=== PATIENT | female | born 1960 | race Caucasian/White ===

== ENCOUNTER 2017-06-08 13:08 | Emergency (ER) | payer OTHER ==
[2017-06-08] MEDS ORDERED: Ketorolac 60 MG/2 ML SDV IM ONE (13:55)
--- NOTE | 2017-06-08 13:58 | EDM.PDOC ---
ED HPI GENERAL MEDICAL PROBLEM - General Chief Complaint: General Stated Complaint: FLU-LIKE SYMPTOMS Time Seen by Provider: 06/08/17 13:39 - History of Present Illness INITIAL COMMENTS - FREE TEXT/NARRATIVE: HISTORY AND PHYSICAL: History of present illness: The patient is a 56-year-old female who presents with not feeling well since yesterday afternoon. The patient says that she woke yesterday morning at 3 AM with a typical migraine headache. She says her headaches are usually in the back of her head and neck there is associated with nausea and vomiting which she had. The patient said she just slept it off and the headache went away and she no longer has that. She is no longer nauseated nor did she have any abdominal complaints. Patient says that along with the headache she just started feeling run down with body aches and and after her headache was gone she started having a harsh deep cough occasionally productive of phlegm any sore throat. Her temps have been low-grade and she has no chest pain or shortness of breath. Patient says that she has aches all over her body and has low energy. She has had no appetite but is hydrating. 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 Past medical history: As per history of present illness and as reviewed below otherwise noncontributory. Surgical history: As per history of present illness and as reviewed below otherwise noncontributory. Social history: No reported history of drug or alcohol abuse. Family history: As per history of present illness and as reviewed below otherwise noncontributory. Physical exam: General: Well-developed well-nourished female who is nontoxic and speaks without hoarse voice or breathlessness. She does have a harsh cough which I appreciated in the ER. Vital signs have been reviewed by me HEENT: Atraumatic, normocephalic, pupils reactive, negative for conjunctival pallor or scleral icterus, mucous membranes moist, throat clear, neck supple, nontender, trachea midline. No cervical adenopathy or nuchal rigidity Lungs: Clear to auscultation, breath sounds equal bilaterally, chest nontender. Heart: S1S2, regular, negative for clicks, rubs, or JVD. Abdomen: Soft, nondistended, nontender. NABS Pelvis: Deferred Genitourinary: Deferred. Rectal: Deferred. Extremities: Atraumatic, negative for cords or calf pain. Neurovascular unremarkable. Neuro: Awake, alert, oriented. Cranial nerves II through XII unremarkable. Cerebellum unremarkable. Motor and sensory unremarkable throughout. Exam nonfocal. Diagnostics: CBC CMP mono spot UA rapid strep influenza x-ray Therapeutics: Toradol Impression: Influenza A Definitive disposition and diagnosis as appropriate pending reevaluation and review of above. Generalized Pain Score (Numeric/FACES): 3 - Related Data Allergies Allergy/AdvReac Type Severity Reaction Status Date / Time cortisone [Cortisone] Allergy Rash Verified 04/06/14 07:14 MST egg Allergy Anaphylactic Verified 04/06/14 07:14 MST Shock Penicillins Allergy Decreased Verified 04/06/14 07:14 MST Urine Output Home Meds: Home Meds Bifidobacterium Infantis [Align] 4 mg PO DAILY 04/05/14 [History] Levocetirizine Dihydrochloride 5 mg PO BEDTIME 04/05/14 [History] Olopatadine [Patanol 0.1% Ophth Soln] 1 drop EYEBOTH BID 04/05/14 [History] Montelukast Sodium [Singulair] 10 mg PO DAILY PRN 04/06/14 [History] Past Medical History - Past Health History Medical/Surgical History: Denies Medical/Surgical History Social & Family History - Tobacco Use Smoking Status *Q: Never Smoker Second Hand Smoke Exposure: No - Caffeine Use Caffeine Use: Reports: None - Alcohol Use Days Per Week of Alcohol Use: 0 Number of Drinks Per Day: 0 Total Drinks Per Week: 0 - Recreational Drug Use Recreational Drug Use: No Drug Use in Last 12 Months: No ED ROS GENERAL - Review of Systems Review Of Systems: ROS reveals no pertinent complaints other than HPI. ED EXAM, GENERAL - Physical Exam Exam: See Below (See dictation) Course - Vital Signs Last Recorded V/S: Last Vital Signs Temp 36.7 C 06/08/17 13:37 Pulse 77 06/08/17 13:37 Resp 18 06/08/17 13:37 BP 140/84 06/08/17 13:37 Pulse Ox 95 06/08/17 13:37 - Orders/Labs/Meds Orders: Active Orders 24 hr Category Date Time Status Chest 2V [CR] Stat Exams 06/08/17 13:55 Taken CULTURE STREP A CONFIRMATION [RM] Stat Lab 06/08/17 14:00 Results STREP SCRN A RAPID W CULT CONF [RM] Stat Lab 06/08/17 14:00 Results Labs: Laboratory Tests 06/08/17 06/08/17 06/08/17 Range/Units 14:01 14:01 14:01 WBC 4.59 (4.0-11.0) K/uL RBC 4.56 (4.30-5.90) M/uL Hgb 13.0 (12.0-16.0) g/dL Hct 40.2 (36.0-46.0) % MCV 88.2 (80.0-98.0) fL MCH 28.5 (27.0-32.0) pg MCHC 32.3 (31.0-37.0) g/dL RDW Std Deviation 42.8 (28.0-62.0) fl RDW Coeff of Ramirez 13 (11.0-15.0) % Plt Count 149 L (150-400) K/uL MPV 10.00 (7.40-12.00) fL Neut % (Auto) 82.3 H (48.0-80.0) % Lymph % (Auto) 6.8 L (16.0-40.0) % Sac % (Auto) 10.9 (0.0-15.0) % Eos % (Auto) 0.0 (0.0-7.0) % Baso % (Auto) 0.0 (0.0-1.5) % Neut # (Auto) 3.8 (1.4-5.7) K/uL Lymph # (Auto) 0.3 L (0.6-2.4) K/uL Sac # (Auto) 0.5 (0.0-0.8) K/uL Eos # (Auto) 0.0 (0.0-0.7) K/uL Baso # (Auto) 0.0 (0.0-0.1) K/uL Nucleated RBC % 0.0 /100WBC Nucleated RBCs # 0 K/uL Sodium 134 L (136-146) mmol/L Potassium 3.4 L (3.5-5.1) mmol/L Chloride 101 (98-110) mmol/L Carbon Dioxide 24 (21-31) mmol/L BUN 12 (6.0-23.0) mg/dL Creatinine 0.8 (0.6-1.5) mg/dL Est Cr Clr Drug Dosing TNP Estimated GFR (MDRD) > 60.0 ml/min Glucose 118 H (60-110) mg/dL Calcium 8.9 (8.8-10.8) mg/dL Total Bilirubin 0.7 (0.1-1.5) mg/dL AST 19 (5-40) IU/L ALT 16 (8-54) IU/L Alkaline Phosphatase 74 (40-150) Total Protein 7.0 (6.0-8.0) g/dL Albumin 4.3 (3.5-5.0) g/dL Globulin 2.7 (2.0-3.5) g/dL Albumin/Globulin Ratio 1.6 (1.3-2.8) Monoscreen NEGATIVE (NEG) Meds: Medications Discontinued Medications Generic Name Dose Route Start Last Admin Trade Name Freq PRN Reason Stop Dose Admin Ketorolac Tromethamine 60 mg 06/08/17 13:55 06/08/17 14:23 Toradol IM 06/08/17 13:56 60 mg ONETIME ONE Administration Departure - Departure Time of Disposition: 14:50 Disposition: Home, Self-Care 01 Condition: Good Clinical Impression: Influenza A - Discharge Information Referrals: Lisa Ray DO [Primary Care Provider] - Forms: ED Department Discharge Additional Instructions: The following information is given to patients seen in the emergency department who are being discharged to home. This information is to outline your options for follow-up care. We provide all patients seen in our emergency department with a follow-up referral. The need for follow-up, as well as the timing and circumstances, are variable depending upon the specifics of your emergency department visit. If you don't have a primary care physician on staff, we will provide you with a referral. We always advise you to contact your personal physician following an emergency department visit to inform them of the circumstance of the visit and for follow-up with them and/or the need for any referrals to a consulting specialist. The emergency department will also refer you to a specialist when appropriate. This referral assures that you have the opportunity for followup care with a specialist. All of these measure are taken in an effort to provide you with optimal care, which includes your followup. Under all circumstances we always encourage you to contact your private physician who remains a resource for coordinating your care. When calling for followup care, please make the office aware that this follow-up is from your recent emergency room visit. If for any reason you are refused follow-up, please contact the [facility] emergency department at and ask to speak to the emergency department charge nurse. [address] [place] [address] [facility]- Internal Medicine and Family [address] [address] Push hydration rest and use [id number] Tylenol and ibuprofen for pain body aches and fevers. Please fill your prescription for Tamiflu and take as directed as this may shorten the duration of your symptoms. Please call and follow-up with your provider in the clinic or one of our providers next week for reevaluation further care. Return to the ER as needed and as discussed - My Orders Last 24 Hours: My Active Orders 06/08/17 13:55 Chest 2V [CR] Stat 06/08/17 14:00 CULTURE STREP A CONFIRMATION [RM] Stat STREP SCRN A RAPID W CULT CONF [] Stat - Assessment/Plan Last 24 Hours: My Active Orders 06/08/17 13:55 Chest 2V [CR] Stat 06/08/17 14:00 CULTURE STREP A CONFIRMATION [RM] Stat STREP SCRN A RAPID W CULT CONF [] Stat
[2017-06-08 14:32] LABS: CHLORIDE,CL 101 mmol/L (98-110); SODIUM,NA 134 mmol/L (136-146)
--- NOTE | 2017-06-10 14:21 | CR ---
EXAM DATE: 06/08/17 PATIENT'S AGE: 56 Patient: JOELLE PACKER Facility: [place], [place] Site . Site : [id number] Study: XRay Chest [id number] 2:19:18 PM Ordering Physician: Pro Bowen Final Report: INDICATION: Pain. Shortness of breath. TECHNIQUE: PA and lateral chest x-ray. FINDINGS: Mild anterior wedging of lower thoracic vertebral bodies chronic. Heart size normal. No pulmonary infiltrate. Slight linear atelectasis or scarring in the lower lungs. Chest otherwise negative. Dictated by Trell Wray MD @ Jun 08 2017 2:26PM (Electronic Signature) Report Signed by Proxy. EFREN
== END 2017-06-08 15:21 | disposition home or self-care (01) ==
LOC: MW.ED 13:08
DX: J10.1 Influenza due to other identified influenza virus with other respiratory manifestations (principal); Z88.0 Allergy status to penicillin; Z88.8 Allergy status to other drugs, medicaments and biological substances; Z91.012 Allergy to eggs; Z79.899 Other long term (current) drug therapy
CPT/HCPCS: 36415; 71046; 80053; 85025; 86308; 87081; 87804; 87880; 96372; 99284; J1885

== ENCOUNTER 2020-05-14 09:15 | Emergency (ER) | payer OTHER ==
--- NOTE | 2020-05-14 09:45 | EDM.PDOC ---
ED HPI GENERAL MEDICAL PROBLEM - General Chief Complaint: Gastrointestinal Problem Stated Complaint: bowel obstruction Time Seen by Provider: 05/14/20 09:31 Source of Information: Reports: Patient History Limitations: Reports: No Limitations - History of Present Illness INITIAL COMMENTS - FREE TEXT/NARRATIVE: A 59-year-old female presents today for lower abdominal pain. Patient states that last night she was eating patient and she woke up some bloody bowel movements. Patient states that she had to pass gas in the base of blood came out. Patient that she had before the past with her hemorrhoids. Patient denies any weakness fever chills change in color or other complaints abdomen Pain Score (Numeric/FACES): 4 - Related Data Allergies Allergy/AdvReac Type Severity Reaction Status Date / Time cortisone [Cortisone] Allergy Rash Verified 05/14/20 09:57 egg Allergy Anaphylactic Verified 05/14/20 09:57 Shock Penicillins Allergy Decreased Verified 05/14/20 09:57 Urine Output Home Meds: Home Meds Ciprofloxacin [Cipro] 750 mg PO DAILY 3 Days #3 tablet 05/14/20 [Rx] Past Medical History - Past Health History Medical/Surgical History: Denies Medical/Surgical History Social & Family History - Caffeine Use Caffeine Use: Reports: None ED ROS GENERAL - Review of Systems Review Of Systems: See Below Constitutional: Reports: No Symptoms HEENT: Reports: No Symptoms Respiratory: Reports: No Symptoms Cardiovascular: Reports: No Symptoms Endocrine: Reports: No Symptoms GI/Abdominal: Reports: Abdominal Pain, Hematochezia : Reports: No Symptoms Musculoskeletal: Reports: No Symptoms Skin: Reports: No Symptoms Neurological: Reports: No Symptoms Psychiatric: Reports: No Symptoms Hematologic/Lymphatic: Reports: No Symptoms Immunologic: Reports: No Symptoms ED EXAM, GENERAL - Physical Exam Exam: See Below Exam Limited By: No Limitations General Appearance: Alert, WD/WN Respiratory/Chest: No Respiratory Distress, Lungs Clear, Normal Breath Sounds Cardiovascular: Normal Peripheral Pulses, Regular Rate, Rhythm GI/Abdominal: Normal Bowel Sounds, Soft, Non-Tender Extremities: Normal Inspection, Normal Range of Motion Neurological: Alert, Oriented, CN II-XII Intact, Normal Cognition Course - Vital Signs Last Recorded V/S: Last Vital Signs Temp 98.6 F 05/14/20 09:26 Pulse 93 05/14/20 09:26 Resp 17 05/14/20 09:26 BP 164/97 H 05/14/20 09:26 Pulse Ox 96 05/14/20 09:26 - Orders/Labs/Meds Orders: Active Orders 24 hr Category Date Time Status Guaiac [OCCULT BLOOD DIAGNOSTIC] [OP] Stat Lab 05/14/20 09:42 Ordered Labs: Laboratory Tests 05/14/20 05/14/20 05/14/20 Range/Units 09:58 09:58 09:58 WBC 7.85 (4.0-11.0) K/uL RBC 5.13 (4.30-5.90) M/uL Hgb 14.5 (12.0-16.0) g/dL Hct 45.7 (36.0-46.0) % MCV 89.1 (80.0-98.0) fL MCH 28.3 (27.0-32.0) pg MCHC 31.7 (31.0-37.0) g/dL RDW Std Deviation 41.4 (28.0-62.0) fl RDW Coeff of Ramirez 13 (11.0-15.0) % Plt Count 212 (150-400) K/uL MPV 10.40 (7.40-12.00) fL Neut % (Auto) 86.6 H (48.0-80.0) % Lymph % (Auto) 7.9 L (16.0-40.0) % [place] % (Auto) 5.0 (0.0-15.0) % Eos % (Auto) 0.4 (0.0-7.0) % Baso % (Auto) 0.1 (0.0-1.5) % Neut # (Auto) 6.8 H (1.4-5.7) K/uL Lymph # (Auto) 0.6 (0.6-2.4) K/uL [place] # (Auto) 0.4 (0.0-0.8) K/uL Eos # (Auto) 0.0 (0.0-0.7) K/uL Baso # (Auto) 0.0 (0.0-0.1) K/uL Nucleated RBC % 0.0 /100WBC Nucleated RBCs # 0 K/uL INR 1.11 APTT 27.9 (18.6-31.3) SEC Sodium 142 (136-145) mmol/L Potassium 3.8 (3.5-5.1) mmol/L Chloride 103 (98-107) mmol/L Carbon Dioxide 27.1 (21.0-32.0) mmol/L BUN 13 (7.0-18.0) mg/dL Creatinine 0.9 (0.6-1.0) mg/dL Est Cr Clr Drug Dosing 63.78 mL/min Estimated GFR (MDRD) > 60.0 ml/min Glucose 119 H (74-106) mg/dL Calcium 9.4 (8.5-10.1) mg/dL Phosphorus 3.5 (2.6-4.7) mg/dL Magnesium 2.0 (1.8-2.4) mg/dL Total Bilirubin 0.6 (0.2-1.0) mg/dL AST 19 (15-37) IU/L ALT 34 (14-63) IU/L Alkaline Phosphatase 108 (46-116) U/L Creatine Kinase 48 (26-308) U/L Total Protein 7.7 (6.4-8.2) g/dL Albumin 4.3 (3.4-5.0) g/dL Globulin 3.4 (2.6-4.0) g/dL Albumin/Globulin Ratio 1.3 (0.9-1.6) Lipase 92 (73-393) U/L 05/14/20 Range/Units 13:34 WBC 9.77 (4.0-11.0) K/uL RBC 5.17 (4.30-5.90) M/uL Hgb 14.6 (12.0-16.0) g/dL Hct 46.4 H (36.0-46.0) % MCV 89.7 (80.0-98.0) fL MCH 28.2 (27.0-32.0) pg MCHC 31.5 (31.0-37.0) g/dL RDW Std Deviation 42.0 (28.0-62.0) fl RDW Coeff of Ramirez 13 (11.0-15.0) % Plt Count 211 (150-400) K/uL MPV 10.40 (7.40-12.00) fL Neut % (Auto) 82.6 H (48.0-80.0) % Lymph % (Auto) 10.5 L (16.0-40.0) % [place] % (Auto) 6.4 (0.0-15.0) % Eos % (Auto) 0.4 (0.0-7.0) % Baso % (Auto) 0.1 (0.0-1.5) % Neut # (Auto) 8.1 H (1.4-5.7) K/uL Lymph # (Auto) 1.0 (0.6-2.4) K/uL [place] # (Auto) 0.6 (0.0-0.8) K/uL Eos # (Auto) 0.0 (0.0-0.7) K/uL Baso # (Auto) 0.0 (0.0-0.1) K/uL Nucleated RBC % 0.0 /100WBC Nucleated RBCs # 0 K/uL INR APTT (18.6-31.3) SEC Sodium (136-145) mmol/L Potassium (3.5-5.1) mmol/L Chloride (98-107) mmol/L Carbon Dioxide (21.0-32.0) mmol/L BUN (7.0-18.0) mg/dL Creatinine (0.6-1.0) mg/dL Est Cr Clr Drug Dosing mL/min Estimated GFR (MDRD) ml/min Glucose (74-106) mg/dL Calcium (8.5-10.1) mg/dL Phosphorus (2.6-4.7) mg/dL Magnesium (1.8-2.4) mg/dL Total Bilirubin (0.2-1.0) mg/dL AST (15-37) IU/L ALT (14-63) IU/L Alkaline Phosphatase (46-116) U/L Creatine Kinase (26-308) U/L Total Protein (6.4-8.2) g/dL Albumin (3.4-5.0) g/dL Globulin (2.6-4.0) g/dL Albumin/Globulin Ratio (0.9-1.6) Lipase (73-393) U/L Meds: Medications Discontinued Medications Generic Name Dose Route Start Last Admin Trade Name Freq PRN Reason Stop Dose Admin Ciprofloxacin 500 mg 05/14/20 13:34 05/14/20 13:46 Ciprofloxacin Hcl PO 05/14/20 13:35 500 mg ONETIME ONE Administration Iopamidol 100 ml 05/14/20 12:31 05/14/20 12:32 Isovue Multipack-370 (76%) IVPUSH 05/14/20 12:32 100 ml ONETIME ONE Administration - Re-Assessments/Exams Free Text/Narrative Re-Assessment/Exam: 05/14/20 13:54 Patient hemoglobin remained stable. Patient has a colitis. There was no obvious blood seen on the guaiac. The guaiac was positive. We will send patient home with antibiotics and give strict return precautions no signs of profuse GI bleed at the moment. Departure - Departure Time of Disposition: 14:20 Disposition: Home, Self-Care 01 Clinical Impression: Colitis - Discharge Information *PRESCRIPTION DRUG MONITORING PROGRAM REVIEWED*: Not Applicable *COPY OF PRESCRIPTION DRUG MONITORING REPORT IN PATIENT [place]: Not Applicable Prescriptions: Ciprofloxacin [Cipro] 750 mg PO DAILY 3 Days #3 tablet Instructions: Gastrointestinal Bleeding, Bloody Diarrhea Referrals: Lisa Ray DO [Primary Care Provider] - Forms: ED Department Discharge Additional Instructions: The following information is given to patients seen in the emergency department who are being discharged to home. This information is to outline your options for follow-up care. We provide all patients seen in our emergency department with a follow-up referral. The need for follow-up, as well as the timing and circumstances, are variable depending upon the specifics of your emergency department visit. If you don't have a primary care physician on staff, we will provide you with a referral. We always advise you to contact your personal physician following an emergency department visit to inform them of the circumstance of the visit and for follow-up with them and/or the need for any referrals to a consulting specialist. The emergency department will also refer you to a specialist when appropriate. This referral assures that you have the opportunity for follow-up care with a specialist. All of these measure are taken in an effort to provide you with optimal care, which includes your follow-up. Under all circumstances we always encourage you to contact your private physician who remains a resource for coordinating your care. When calling for follow-up care, please make the office aware that this follow-up is from your recent emergency room visit. If for any reason you are refused follow-up, please contact the [facility] Emergency Department at and asked to speak to the emergency department charge nurse. Please follow up with your primary care physician. If you do not have a primary care physician, see below: [facility] [address] [place] [address] My [facility] [address] [place] [address] Follow with your primary care physician. Please also see a elderly companion for further care. You have any increased blood in your stool weakness fatigue or turning pale please return to the ED immediately. Sepsis Event Note (ED) - Focused Exam Vital Signs: Vital Signs Temp Pulse Resp BP Pulse Ox 05/14/20 09:26 98.6 F 93 17 164/97 H 96 - My Orders Last 24 Hours: My Active Orders 05/14/20 09:42 Guaiac [OCCULT BLOOD DIAGNOSTIC] [OP] Stat - Assessment/Plan Last 24 Hours: My Active Orders 05/14/20 09:42 Guaiac [OCCULT BLOOD DIAGNOSTIC] [OP] Stat Assessment:: Patient is a 59-year-old female presents today for lower abdominal pain. Patient also complains of some blood in her stool. Will perform stool guaiac obtain CBC and trend hemoglobin.
[2020-05-14 10:39] LABS: BLOOD UREA NITROGEN,BUN 13 mg/dL (7.0-18.0); CARBON DIOXIDE,CO2 27.1 mmol/L (21.0-32.0); CHLORIDE,CL 103 mmol/L (98-107); GLUCOSE RANDOM 119 mg/dL (74-106); LIPASE 92 U/L (73-393); POTASSIUM,K 3.8 mmol/L (3.5-5.1); SODIUM,NA 142 mmol/L (136-145)
[2020-05-14] MEDS: Iopamidol 755 MG/ML 500 ML Multipack Bottle IVPUSH ONE (12:32)
--- NOTE | 2020-05-14 13:33 | CT ---
INDICATION: Left lower quadrant pain with possible blood in stool. TECHNIQUE: Volumetric helical scanning of the abdomen and pelvis was performed with 100 cc of Isovue 370 contrast material IV. Coronal and sagittal reconstructions were obtained. COMPARISON: None. FINDINGS: Mild circumferential wall thickening of the colon from the mid transverse to the distal sigmoid with stranding in the adjacent fat and consistent with acute colitis. No pneumatosis, free fluid or free air is evident. The bowel is otherwise unremarkable except for a small hiatal hernia. The liver is unremarkable except for a 5 mm focus of decreased attenuation in the right lobe. No bile duct dilation is evident. The spleen is unremarkable except for and 8 mm focus of decreased attenuation. The adrenal glands are unremarkable. The pancreas is within normal limits. The kidneys are unremarkable. No lymphadenopathy is evident. The uterus and ovaries are within normal limits. The lung bases are clear. The heart is normal in size. IMPRESSION: 1. Uncomplicated acute colitis involving the sigmoid, left and distal transverse colon. 2. Nonspecific 8 mm focus of decreased attenuation in the spleen and 5 mm focus of decreased attenuation in the liver. Cyst or hemangioma likely. 3. Small hiatal hernia. Please note that all CT scans at this facility use dose modulation, iterative reconstruction, and/or weight-based dosing when appropriate to reduce radiation dose to as low as reasonably achievable. Dictated by Germán Jack MD @ May 14 2020 1:25PM Signed by Dr. Germán Jack @ May 14 2020 1:31PM
[2020-05-14] MEDS: Ciprofloxacin 500 MG Tab PO ONE (13:46)
== END 2020-05-14 14:29 | disposition home or self-care (01) ==
LOC: MW.ED 09:15
DX: K52.9 Noninfective gastroenteritis and colitis, unspecified (principal); Z88.0 Allergy status to penicillin; Z88.8 Allergy status to other drugs, medicaments and biological substances; Z91.012 Allergy to eggs
CPT/HCPCS: 36415; 74177; 80053; 82550; 83690; 83735; 84100; 85025; 85610; 85730; 99284; A9270; Q9967; 99283

== ENCOUNTER 2022-08-01 15:49 | Day surgery (SDC) | payer BC, OTHER ==
[2022-08-01] MEDS ORDERED: Sodium Chloride 0.9% 1,000 ML IV ONE (16:39)
[2022-08-01 18:05] LABS: CARBON DIOXIDE,CO2 28.2 mmol/L (21.0-32.0); POTASSIUM,K 3.6 mmol/L (3.5-5.1)
[2022-08-01] MEDS ORDERED: Iopamidol 755 MG/ML 500 ML Multipack Bottle IVPUSH STA (18:24)
[2022-08-01] MEDS ORDERED: Ertapenem 1 GM in Sodium Chloride 0.9% 50 ML IV ONE (20:25)
[2022-08-01] MEDS ORDERED: Ondansetron 4 MG/2 ML SDV ONE (20:58)
[2022-08-01] MEDS ORDERED: Dexmedetomidine 200 MCG/2 ML SDV ONE (20:58)
[2022-08-01] MEDS ORDERED: Ketorolac 30 MG/ML SDV ONE (20:58)
[2022-08-01] MEDS ORDERED: Water For Injection, Sterile 20 ML ONE (20:58)
[2022-08-01] MEDS ORDERED: Rocuronium Bromide 50 MG/5 ML Syringe ONE (20:58)
[2022-08-01] MEDS ORDERED: Lidocaine 1% 5 ML VIAL ONE (20:58)
[2022-08-01] MEDS ORDERED: ePHEDrine 50 MG/ML SDV ONE (20:58)
[2022-08-01] MEDS ORDERED: Phenylephrine HCl 0.5 MG/5 ML AMP ONE (20:58)
[2022-08-01] MEDS ORDERED: Dexamethasone 4 MG/ML 5 ML MDV ONE ×2 (20:58→22:13)
[2022-08-01] MEDS ORDERED: Bupivacaine 0.25% 30 ML SDV ONE (20:59)
[2022-08-01] MEDS ORDERED: fentaNYL 100 MCG/2 ML SDV ONE (21:05)
[2022-08-01] MEDS ORDERED: Propofol 200 MG/20 ML SDV ONE (21:05)
[2022-08-01] MEDS ORDERED: propofoL 100 ML ONE (21:34)
[2022-08-01] MEDS ORDERED: Magnesium Sulfate (4.06 MEQ/ML) 5 GM/10 ML SDV ONE (21:38)
[2022-08-01] MEDS ORDERED: Bupivacaine 0.5% 30 ML SDV ONE (21:49)
[2022-08-01] MEDS ORDERED: Sugammadex Sodium 200 MG/2 ML VIAL ONE (22:37)
[2022-08-01] MEDS ORDERED: HYDROmorphone 2 MG/ML Syringe IVPUSH PRN (22:46)
[2022-08-01] MEDS ORDERED: Acetaminophen/HYDROcodone 325-10 MG Tab PO PRN (22:46)
[2022-08-01] MEDS ORDERED: Lactated Ringers 1,000 ML IV SCH (23:00)
[2022-08-02] MEDS ORDERED: Ondansetron 4 MG/2 ML SDV IVPUSH PRN (03:00)
== END 2022-08-02 09:20 | disposition home or self-care (01) ==
LOC: MW.ED 15:49 → MW.SDS 20:32 → MW.MS 20:35 → MW.SDS 08-02 09:20
PROVIDERS: ATTEND Surgery
DX: K35.33 Acute appendicitis with perforation, localized peritonitis, and gangrene, with abscess (principal); N73.6 Female pelvic peritoneal adhesions (postinfective); K21.9 Gastro-esophageal reflux disease without esophagitis; Z88.8 Allergy status to other drugs, medicaments and biological substances; Z79.899 Other long term (current) drug therapy; Z88.0 Allergy status to penicillin
CPT/HCPCS: 36415; 44970; 74177; 80053; 81003; 85025; J0131; J1100; J1335; J1885; J2370; J2704; J3010; J3475; J3490; J7030; J7050; J7120; Q9967; 00840; 64488; 96361; 96365; 99285-25; J2405